=== PATIENT | female | born 1955 | race Hispanic/Latino ===

== ENCOUNTER 2017-05-08 07:47 | Outpatient (CLI) | payer BC, OTHER | END 2017-05-08 07:48 | disposition home or self-care (01) | LOC: BICULT 07:47 | PROVIDERS: ATTEND Internal Medicine Gastroenterology | DX: R10.13 Epigastric pain (principal); K76.0 Fatty (change of) liver, not elsewhere classified | CPT/HCPCS: 76700 ==

== ENCOUNTER 2017-06-26 08:11 | Outpatient (CLI) | payer BC | END 2017-06-26 08:12 | disposition home or self-care (01) | LOC: BICMRI 08:11 | PROVIDERS: ATTEND Family Medicine | DX: M54.6 Pain in thoracic spine (principal) | CPT/HCPCS: 72146 ==

== ENCOUNTER 2019-11-29 20:24 | Emergency (ER) | payer BC, OTHER ==
--- NOTE | 2019-11-29 21:37 | ULT ---
LEFT LOWER EXTREMITY DOPPLER VENOUS ULTRASOUND PROVIDED CLINICAL HISTORY: Left calf pain TECHNIQUE: Grayscale and color Doppler sonography with spectral analysis was performed of the left common femora l, femoral, popliteal, posterior tibial, greater saphenous and profunda femoral veins. FINDINGS: There is normal compression, flow and augmentation seen within the deep venous structures o f the left lower extremity. IMPRESSION: No sonographic evidence for left lower extremity deep venous thrombosis.
== END 2019-11-29 22:10 | disposition home or self-care (01) ==
LOC: ERS 20:24
DX: M79.662 Pain in left lower leg (principal); K21.9 Gastro-esophageal reflux disease without esophagitis; Z79.899 Other long term (current) drug therapy